=== PATIENT | male | born 1985 | race Caucasian/White ===

== ENCOUNTER 2017-02-16 01:38 | Emergency (ER) | payer OTHER ==
[2017-02-16] MEDS ORDERED: FUL-GLO STRIP EACHEYE ONE (01:46)
[2017-02-16 01:47] VITALS: BP 102/75; BMI 25.8
[2017-02-16] MEDS ORDERED: FUL-GLO STRIP ONE (01:47)
[2017-02-16] MEDS ORDERED: GENTAK OPHTH OINT EACHEYE SCH (02:02)
--- NOTE | 2017-02-16 02:02 | DR.EYE ---
HPI - Time Seen Time seen: 01:58 - PCP Primary Care Physician: kamilah - HPI Comment HPI Comment: PATIENT EYES PROGRESSIVELY GETTING RED AND PAINFULL. SOME HEADACHE PRESENT. - Nurses notes reviewed Nurses Notes Review: Yes - Complaint Chief Complaint Doctors Comments: INJURY BOTH EYES TODAY WELDING. Chief Complaint:: bilateral eye pain, running water, "think i flashed them today welding. - Source History Provided: Patient, Parent - Mode of arrival Mode of Arrival: Ambulatory - Timing Onset of Chief Complaint: 02/15/17 Came on: Suddenly - Quality Quality: Pain, Red, FB sensation - Location Location: Bilateral eyes - Context Onset: FB exposure-comment Recent: Welding History of: None Last Tetanus: UTD - Severity Symptom severity: Severe - Associated signs and symptoms Associated signs and symptoms: Tearing, Photophobia. denies: Fever PMH - PMH Past Medical History: No Past Surgical History: No - Family History History of Family Medical Conditions: No - Social History Type of Tobacco Use: None Alcohol Use: None Do you use any recreational Drugs:: No Lives Where: Home - infectious screening Have you traveled outside the country in the last 6 months?: No Isolation: Standard ROS - Review of Systems Constitutional: No Symptoms Reported Eyes: Eye Pain, Blurred Vision, Tearing, Photophobia, Diplopia ENTM: No Symptoms Reported. negative: Ear Pain, Nose Discharge, Nose Congestion , Throat Pain Respiratoy: No Symptoms Reported. negative: Non-Productive Cough, Short of Breath, Wheezing, Hemoptysis Cardiovascular: No Symptoms Reported Gastrointestinal/Abdominal: No Symptoms Reported Genitourinary: No Symptoms Reported Neurological: No Symptoms Reported Musculoskeletal: No Symptoms Reported Integumentary: No Symptoms Reported Hematologic/Lymphatic: No Symptoms Reported Endocrine: No Symptoms Reported All Other Systems: Reviewed and Negative PE - Vital Signs Vitals: Pulse Rate 72 Respiratory Rate 18 Blood Pressure 102/75 O2 Sat by Pulse Oximetry 98 - General Limitations: No Limitations General Appearance: Alert - Head Head Exam: Normal Inspection - Eyes Eye exam: PERRL, EOMI, Conjunctival Injection, Periorbital Swelling. negative: Scleral Icterus, Nystagmus Eyelids: Swelling Eyelid: Bilateral Pupils: Regular, Round: Right, Reactive: Bilateral Sclera/Conjunctival: Injection: Bilateral - ENT ENT Exam: Normal Oropharynx, Normal External Ear Exam External Ear Exam: Normal External Inspection TM/Canal Exam: Bilateral Normal Nose Exam: Normal Nose Exam Mouth Exam: Normal Inspection Throat Exam: Normal Inspection - Neck Neck Exam: Trachea Midline. negative: Tenderness, Meningismus, Lymphadenopathy - Chest Chest Inspection: Symmetric Chest Wall Rise - Respiratory Respiratory Exam: Normal Lung Sounds Bilat Respiratory Exam: Bilateral Clear to Auscultation - Cardiovascular Cardiovascular Exam: Regular Rate, Normal Rhythm, Normal Heart Sounds - Abdominal Exam Abdominal Exam: Normal Bowel Sounds, Soft. negative: Tenderness - Extremities Extremities Exam: Normal Inspection - Back Back Exam: Normal Inspection - Neurologic Neurological Exam: Oriented X3 - Psychiatric Psychiatric Exam: Normal Affect - Skin Skin Exam: Normal Color Type of Lesion: Foreign Body (SENSATION IN EYES) MDM - Additional Information Additional Information Obtained From: Family - Differential Diagnosis Differential Diagnosis: Corneal abrasion Course - Treatment Treatment: SEE ORDERS. - Education/Counseling Education/Counseling: Patient, Family, Education Educated On: Treatment, Diagnosis, Needs for Follow Up - Diagnosis Discharge Problem: Corneal abrasion, bilateral Qualifiers: Encounter type: initial encounter Qualified Code(s): S05.01XA - Injury of conjunctiva and corneal abrasion without foreign body, right eye, initial encounter; S05.02XA - Injury of conjunctiva and corneal abrasion without foreign body, left eye, initial encounter Conjunctivitis Qualifiers: Conjunctivitis type: unspecified Laterality: bilateral Qualified Code(s): H10.9 - Unspecified conjunctivitis - Discharge Plan Disposition: HOME, SELF-CARE Condition: Stable Prescriptions: Acetaminophen W/ Codeine [Tylenol/Codeine #3 300-30 mg] 1 tab PO Q4-6H PRN #15 tab PRN Reason: Pain Ibuprofen [MOTRIN TAB 600 MG *] 600 mg PO TID PRN #20 tab PRN Reason: Pain/Inflammation - Follow ups/Referrals Follow ups/Referrals: QUINTIN TREVINO [CONSULTING PHYSICIAN] - 02/19/17 ASHUTOSH NATHAN [Primary Care Provider] - 02/19/17 - Instructions Instructions: Corneal Abrasion, [id number], Bacterial Conjunctivitis Additional Instructions: RETURN TO ED IF WORSE. SEE [facility] THIS AM IF HE IS AVAILABLE.
[2017-02-16] MEDS ORDERED: MOTRIN TAB 600 MG PO ONE ×2 (02:07→02:10)
[2017-02-16] MEDS ORDERED: TYLENOL #3 TAB (W/CODEINE) PO ONE ×2 (02:07→02:10)
[2017-02-16] MEDS ORDERED: GENTAMICIN SULF (OPHTH) AFFEYE ONE (02:08)
== END 2017-02-16 02:43 | disposition home or self-care (01) ==
LOC: ER 01:38
DX: S05.01XA Injury of conjunctiva and corneal abrasion without foreign body, right eye, initial encounter (principal); S05.02XA Injury of conjunctiva and corneal abrasion without foreign body, left eye, initial encounter; H10.9 Unspecified conjunctivitis; W89.0XXA Exposure to welding light (arc), initial encounter
CPT/HCPCS: 99282